=== PATIENT | female | born 2000 | race Caucasian/White ===

== ENCOUNTER 2023-04-15 09:06 | Outpatient (CLI) | payer OTHER, SELFPAY | END 2023-04-15 09:07 | disposition home or self-care (01) | PROVIDERS: Visit Provider Registered Nurse | DX: Z34.91 Encounter for supervision of normal pregnancy, unspecified, first trimester (principal); Z3A.01 Less than 8 weeks gestation of pregnancy | CPT/HCPCS: 76817; 82565; 82570; 84156; 84450; 84460; 84520; 84550; 86592; 86703; 86704; 86706; 86762; 86787; 86803; 86850; 86900; 86901; 87086; 87340; 87491; 87591 ==

== ENCOUNTER 2023-04-29 08:55 | Outpatient (CLI) | payer OTHER, SELFPAY | END 2023-04-29 08:56 | disposition home or self-care (01) | LOC: NFLDREF 05-03 11:37 | PROVIDERS: Visit Provider Obstetrics & Gynecology | DX: Z34.91 Encounter for supervision of normal pregnancy, unspecified, first trimester (principal); O34.00 Maternal care for unspecified congenital malformation of uterus, unspecified trimester; O10.911 Unspecified pre-existing hypertension complicating pregnancy, first trimester; Q51.28 Other and unspecified doubling of uterus; Z3A.08 8 weeks gestation of pregnancy | CPT/HCPCS: 76817; 87491; 87591 ==

== ENCOUNTER 2023-05-02 09:23 | Outpatient (CLI) | payer OTHER, SELFPAY | END 2023-05-02 09:24 | disposition home or self-care (01) | LOC: NFLDREF 15:36 | PROVIDERS: Visit Provider Physician Assistant Medical | DX: R30.0 Dysuria (principal); N39.0 Urinary tract infection, site not specified; O20.0 Threatened abortion | CPT/HCPCS: 87086; 87186; J2791 ==

== ENCOUNTER 2023-06-23 09:26 | Outpatient (CLI) | payer OTHER, SELFPAY | END 2023-06-23 09:27 | disposition home or self-care (01) | LOC: NFLDREF 09:27 | PROVIDERS: Visit Provider Obstetrics & Gynecology | DX: Z34.92 Encounter for supervision of normal pregnancy, unspecified, second trimester (principal); Z3A.16 16 weeks gestation of pregnancy | CPT/HCPCS: 81511 ==

== ENCOUNTER 2023-07-21 08:53 | Outpatient (CLI) | payer OTHER, SELFPAY | END 2023-07-21 08:54 | disposition home or self-care (01) | LOC: NFLDREF 08:58 | PROVIDERS: Visit Provider Obstetrics & Gynecology | DX: R30.0 Dysuria (principal) | CPT/HCPCS: 87086 ==

== ENCOUNTER 2023-09-14 08:42 | Outpatient (CLI) | payer OTHER, SELFPAY | END 2023-09-14 08:43 | disposition home or self-care (01) | LOC: NFLDREF 08:42 | PROVIDERS: Visit Provider Obstetrics & Gynecology | DX: Z34.93 Encounter for supervision of normal pregnancy, unspecified, third trimester (principal); Z3A.28 28 weeks gestation of pregnancy | CPT/HCPCS: 86592; 86850; J2791 ==

== ENCOUNTER 2023-09-14 13:45 | Outpatient (CLI) | payer OTHER, SELFPAY ==
--- NOTE | 2023-09-14 14:00 | US_ITS ---
Patient: DAYTON COWART Facility:?[facility] Patient ID:?[id number] Site Patient ID:?[id number] Site :?[id number] Study:?US-OB Pelvis growth-09/14/2023 3:01:22 PM Ordering Physician:Mayra Lopez Final Report: INDICATION: Chronic hypertension. Check growth. TECHNIQUE: Limited transabdominal two-dimensional wynn-scale ultrasound examination. COMPARISON: None FINDINGS: There is a living fetus in cephalic lie with gestational age of 28 weeks 1 day by LMP and 30 weeks 1 day by today`s measurements. EDC based on LMP is 12/06/2023. BPD: 7.7 cm, 31 weeks Head circumference: 28.3 cm, 31 weeks Abdominal circumference: 25.8 cm, 30 weeks Femur length: 5.4 cm, 28 weeks 5 days HC/AC ratio = 1.1 The weight is estimated at 1449 grams, greater than the 97th percentile. The heart rate is measured at 154 beats per minute and the rhythm appears regular. The amniotic fluid volume is within normal limits with single deepest pocket of 5.6 cm. The placenta is fundal and superior to the cervical os. There is no evidence of previa. IMPRESSION: 1. Living fetus in cephalic lie with gestational age of 28 weeks 1 day by LMP and 30 weeks 1 day by today`s measurements. EDC based on LMP is 12/06/2023. 2. weight estimated at 1449 grams, greater than the 97th percentile. Dictated by Forest Leroy MD @ 09/16/2023 8:05:36 AM Signed by:?Forest Leroy MD @09/16/2023 8:05:36 AM (Electronic Signature)
== END 2023-09-14 13:46 | disposition home or self-care (01) ==
LOC: US 13:46
PROVIDERS: Visit Provider Obstetrics & Gynecology
DX: O10.913 Unspecified pre-existing hypertension complicating pregnancy, third trimester (principal); Z3A.28 28 weeks gestation of pregnancy
CPT/HCPCS: 76816; 86850; J2791

== ENCOUNTER 2023-10-09 18:14 | Outpatient (CLI) | payer OTHER, SELFPAY ==
[2023-10-09] VITALS (42 sets, daily range): BP systolic 138–171; BP diastolic 76–95; PULSE 80–123; O2SAT 90–100
[2023-10-09 19:07] LABS: Hematocrit 37.1 % (33.0-51.0); Hemoglobin* 12.5 gm/dL (12.0-16.0); Mean Corpuscular HGB Conc 34 gm/dL (32-36); Mean Corpuscular Hemoglobin 29 pg (26-34); Mean Corpuscular Volume 86 fL (80-100); Platelet Count* 220 K/uL (140-440); Red Blood Count 4.31 m/uL (4.00-5.20); White Blood Count* 11.23 K/uL (4.50-11.00)
[2023-10-09 19:10] LABS: Slide Review Reflex No
[2023-10-09 19:16] LABS: Total Protein Urine 16 mg/dL
[2023-10-09 19:17] LABS: Creatinine Urine 20.1 mg/dL
[2023-10-09] MEDS: LABETALOL HCL 5 MG/ML inj 20 MG IVP (19:30)
[2023-10-09 19:33] LABS: Creatinine* 0.6 mg/dL (0.5-1.5); Estimated Glomerular Filt Rate 128 ml/min
[2023-10-09 19:34] LABS: Alanine Aminotransferase* 15 U/L (4-35); Aspartate Amino Transferase* 20 U/L (12-35); Blood Urea Nitrogen* 11 mg/dL (5-24)
[2023-10-09] MEDS: MAGNESIUM IV 4 GM/100 ML PIGGYBACK IVPB (19:37)
--- NOTE | 2023-10-09 19:45 | P.OBHP_ITS ---
OB - H&P; HPI Antepartum History of Present Illness Date Seen: 10/09/23 Chief complaint: maturnity Narrative: Mary Roche is a 23 year old female at 31 5/7 weeks' gestation by first trimester US not consistent with LMP, KIET 12/06/23, presents with report of new, severe elevations of BP noted at home. She reports a systolic BP this evening in 180s. At time of presentation, at 18:32, her BP was 174/94. She then had a BP of 166/95 at 19:18. She does have the diagnosis of chronic HTN, based on BP elevations of 140s / 90s-100 at time of her first visit at 6 weeks' gestation. Otherwise, her BP has been 130s / 70s since late April, and she is not treated with any antihypertensive medication. She denies any headache, visual changes, or right upper quadrant pain. Specific Issues/Plans G 1 P 0 Life Partner: Pablo Soria. Baby: Boy! 1. Chronic hypertension. Baseline preeclampsia labs ordered today. AST 20, ALT 16, PC ratio 0.00. 24 hour urine: protein 6 mg Recommend starting daily baby aspirin at 12 weeks. If blood pressures are well controlled without medication: Growth ultrasound every 4 weeks starting at 28 weeks Weekly BPP or NST starting at 32 weeks; delivery between 38 and 39 weeks per M 2. BMI 35.2 Hemoglobin A1c: 5.0 1hr GTT: 136 3. Dating by 1st trimester US. 4. Rh NEGATIVE Rhogam: 09/14/23 5. 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 s/p genetic counseling Status post MFM consultation: MFM ultrasound suggestive of bicornuate uterus. Comprehensive ultrasound with transvaginal cervical assessment will be done with MFM at 18 at 20 weeks. Q.4 weeks growth scan starting at 28 weeks. Q weekly surveillance starting at 32 (per MFM due to chronic HTN) Declined all screening Maternal serum AFP at 16-18 weeks possibly: 06/23/23 Level II ultrasound on 07/12: Bicornuate uterus. EFW 98%. AC at the 80%. Normal anatomy scan. MVP 5.4 cm. Posterior placenta, no previa. Three-vessel cord. Breech. Cervix 4.29 cm 6. Pap smear at her 6 wk pp visit. Covid: Completed, not boosted. Declined booster. Tdap: [at 32 week visit] Ultrasounds: 09/14/2023: Cephalic, EFW >97% at 1449 g. Normal fluid. 07/12/2023: Level 2 ultrasound. Posterior placenta without previa, three-vessel cord, normal fluid, AC 88%, EFW 98%, normal visualized anatomy 04/29/2023: Small inferior perigestational hemorrhage measuring 6 mm in greatest dimension. Uterine septum versus didelphys. April 15 24: 6 weeks, 3 days gestation by CRL, with sonographic KIET 12/06/2023 Review of Systems Narrative: no SOB no swelling of legs Otherwise as above Meds Home Medications and Allergies Home Medications ?Medication ?Instructions ?Recorded ?Confirmed ?Type vits no.126-ferrous fum tab PO QDAY 04/29/23 09/30/23 History 28 mg iron-folic acid 800 mcg tablet (Classic ) aspirin 81 mg tablet,delayed 81 mg PO QDAY 06/03/23 10/09/23 History release Allergies Allergy/AdvReac Type Severity Reaction Status Date / Time No Known Drug Allergies Allergy Verified 09/30/23 14:40 OB - H&P: Exam Physical Exam: Vital signs: Pulse BP Pulse Ox 93 142/88 H 100 10/09/23 19:33 10/09/23 19:44 10/09/23 19:43 Narrative: Physical exam: General: No acute distress Psych: Alert and oriented x3, full affect HEENT: Normocephalic, atraumatic, oropharynx benign Neck: No cervical adenopathy, no thyromegaly Heart: Regular rate and rhythm, no murmur rub or gallop Lungs: Clear to auscultation bilaterally Abdomen: Normoactive bowel sounds, soft, no tenderness, rebound, or guarding, no masses, no hepatosplenomegaly, no hernias Skin: No lesions or rashes Breasts: no nodules or masses, no nipple discharge, no axillary adenopathy Lower extremities: No edema or erythema Pelvic exam: Mons normal, clitoris normal, urethral meatus normal. Labia minora and majora normal in appearance bilaterally. Perineum and anus normal appearance. Vaginal introitus normal appearance. Vagina pink and well rugated with scant white discharge. Cervix pink and without lesion. Bimanual exam reveals uterus to be soft, nontender, mobile, anteverted, of normal size and texture. No palpable adnexal masses or tenderness. tracing: Baseline 140, accelerations to 170, no decelerations, moderate variability. OB - Results Labs Labs: Short CBC 10/09/23 Range/Units 18:56 WBC 11.23 H (4.50-11.00) K/uL Hgb 12.5 (12.0-16.0) gm/dL Hct 37.1 (33.0-51.0) % Plt Count 220 (140-440) K/uL BMP 10/09/23 18:56 BUN 11 Creatinine 0.6 Liver Function 10/09/23 Range/Units 18:56 AST 20 (12-35) U/L ALT 15 (4-35) U/L protein to creatinine ratio = 0.80 OB - A/P Antepartum Assessment and Plan (1) Severe preeclampsia: Problem details: superimposed on chronic HTN Status: Acute Assessment and Plan: at 31 5/7 weeks' gestation. She was treated with IV labetalol prior to the initiation of magnesium sulfate infusion. After that time, her BPs were persistently with systolics in the 150s. She was given an additional dose of labetalol 200 mg. She was given a dose of betamethasone at around 8:30 PM. She is to be transferred to [facility], with Dr. Faith Martinez accepting the transfer. Additional Plan Plan: other (Transfer)
[2023-10-09] MEDS: BETAMETHASONE SOD PHOS/ACETATE 6 MG/ML ML 12 MG IM (20:09)
[2023-10-09] MEDS: MAGNESIUM Infusion 40 GM/1,000 ML IV.SOLN IVPB (20:15)
[2023-10-09] MEDS: LABETALOL HCL 100 MG TABLET 200 MG PO (20:41)
--- NOTE | 2023-10-12 20:40 | PC.OBNST ---
NST Note NST Note Start: 10/09/23 18:19 Freq: ONCE Status: Discharge Protocol: Document 10/12/23 20:36 JUAN F (Rec: 10/12/23 20:40 JUAN F [id number]) NST Note 1 Para (# of births) 0 EDC 12/06/23 Gestational Age In Weeks & Days 32 Weeks & 1 Days High Risk Factors High Blood Pressure - Gestational Patient Presented with Complaint(s) of Other Other Complaints Preeclampsia, transferred to [facility] Reactive Yes RN Medardo Grier, RN Date 10/09/23 RN Patient transferred OB NST charge Yes Complete NST Note via Write Note Yes The provider's electronic signature indicates the NST is reactive/appropriate for gestational age. *Note to provider: If an addendum is required, open the patient's chart and click on the note under the Nurse/Allied Health tab.
== END 2023-10-09 20:54 | disposition short-term general hospital (02) ==
LOC: OB OUT 18:15 → OB 18:16
PROVIDERS: Visit Provider Obstetrics & Gynecology
DX: O14.13 Severe pre-eclampsia, third trimester (principal); Z3A.31 31 weeks gestation of pregnancy
CPT/HCPCS: 36415; 59025; 82565; 82570; 84156; 84450; 84460; 84520; 85027; 86850; 86870; 86880; 86900; 86901; G0463; A9270; J0702; J3475

== ENCOUNTER 2023-10-09 20:41 | Outpatient (CLI) | payer OTHER, SELFPAY | END 2023-10-09 20:42 | disposition home or self-care (01) | LOC: AMB 10-11 18:05 | PROVIDERS: Visit Provider Emergency Medicine | DX: O14.13 Severe pre-eclampsia, third trimester (principal); Z3A.31 31 weeks gestation of pregnancy | CPT/HCPCS: A0425; A0427 ==

== ENCOUNTER 2023-11-08 08:22 | Outpatient (CLI) | payer OTHER, SELFPAY | END 2023-11-08 08:23 | disposition home or self-care (01) | LOC: NFLDREF 11-09 10:50 | PROVIDERS: Visit Provider Physician Assistant Medical | DX: N39.0 Urinary tract infection, site not specified (principal); N30.01 Acute cystitis with hematuria | CPT/HCPCS: 87086 ==

== ENCOUNTER 2024-01-13 11:24 | Emergency (ER) | payer OTHER, SELFPAY ==
[2024-01-13 11:30] VITALS: BP 150/93; PULSE 71; RESP 18; TEMP 35.9; O2SAT 98; BMI 39.2
--- NOTE | 2024-01-13 11:55 | ED_ITS ---
HPI - General Adult General Chief complaint: Hypertension Stated complaint: High bp 140/98 hx of preeclampsia Time Seen by Provider: 01/13/24 11:41 Source: patient Mode of arrival: ambulatory Limitations: no limitations History of Present Illness HPI narrative: 23-year-old female coming in today concerned about elevated blood pressures. Patient is 11 weeks status post normal spontaneous vaginal delivery of a lambert at 34 weeks gestation. Patient did have preeclampsia during her that developed at 32 weeks gestation. She was started on nifedipine and has been taking nifedipine 90 mg p.o. daily since her delivery. Blood pressures were generally in the 120s to 140s however recently in the last several days they been consistently elevated in the 140s to 150 systolic over 90 or above diastolic. Patient states that she cannot get her bottom number to go below 90. She also states that she feels a mild throbbing headache. No nausea or vomiting. She denies any changes in her vision. She denies any abdominal pain. She has stopped bleeding. She denies any difficulty with urination, diarrhea or constipation. No neurologic deficits. No confusion or fogginess. No changes in speech. Related Data Home Medications ?Medication ?Instructions ?Recorded ?Confirmed nifedipine 90 mg tablet,extended 90 mg PO DAILY 11/08/23 01/13/24 release Allergies Allergy/AdvReac Type Severity Reaction Status Date / Time No Known Drug Allergies Allergy Verified 01/13/24 11:39 Review of Systems Status of ROS: Reports: 10 or more systems reviewed and unremarkable except as noted in History and below [facility] Medical History Acute UTI ?N39.0 - Urinary tract infection, site not specified (ICD-10) Urinary tract infection ?N39.0 - Urinary tract infection, site not specified (ICD-10) Cellulitis ?L03.90 - Cellulitis, unspecified (ICD-10) Cutaneous candidiasis ?B37.2 - Candidiasis of skin and nail (ICD-10) Family History Mother High blood pressure Social History Narrative: Lives in [place] with her partner and dogs. She works at an insurance agency. She doesn't smoke or use recreational drugs. What is your current living situation?: I presently have a place to live Problems where you live: no known problems In the past 12 months, utilities in danger of being shut off: no In past 12 months, lack of transportation kept you from medical appts, meetings, work, or getting things needed for daily living: no How hard is it for you to pay for the very basics like food, housing, medical care, and heating: not very hard In the past 12 mos, have been you worried that your food would run out before you had money to buy more?: never true In the past 12 mos, the food you bought just didn't last and you didn't have money to buy more?: never true Smoking Status: Former smoker How often does anyone, including family, friends and others, physically hurt you : never How often does anyone, including family, friends and others, insult or talk down to you: never How often does anyone, including family, friends and others, threaten you with harm: never How often does anyone, including family, friends and others, scream or curse at you: never Little interest or pleasure in doing things: not at all Feeling down, depressed, or hopeless: not at all Exam Narrative: Exam Narrative: Overweight, well-developed patient in no acute distress. Alert and oriented. Answers questions appropriately. Mood and affect are appropriate. Thoughts are goal oriented and rational. No tangential or magical thinking noted. Patient speaks in full sentences without needing to catch her breath. HEENT: Normocephalic atraumatic. Pupils are equally round reactive to light. Extraocular muscles are intact. Conjunctivae are moist without any icterus noted. Moist mucous membranes. Cardiovascular: Heart is regular rate and rhythm S1 and S2 are present without any murmurs. Lungs: Clear to auscultation bilaterally no wheezes rhonchi or rales are appreciated. Patient takes deep breaths without any discomfort. Abdomen: Soft and nontender nondistended with normal bowel sounds. Extremities: Bilateral lower extremities are without edema. Skin: Well perfused. Acne. Const: Vital Signs, click to edit/add: Vital Signs - 24 hr 01/13/24 11:30 01/13/24 12:45 Temperature 96.7 F L Pulse Rate [Pulse Oximeter] 71 64 Respiratory Rate 18 16 Blood Pressure [Ri ght Upper Arm] 150/93 H 133/89 Pulse Oximetry 98 98 Oxygen Delivery Me thod Room Air Room Air Course Course ED Course: normal CBC. Chemistries are normal. Normal LFTs. EKG, read by me, shows normal sinus rhythm with a pulse of 64. UA unremarkable. TSH pending at time of dictation. I did consult with who recommends the patient be sent to primary care for management of chronic hypertension as she appears to be suboptimally treated at this time. Of note, repeat blood pressure did come back at 133/89. Vital Signs Vital signs: Initial Vital Signs Temperature 96.7 F L 01/13/24 11:30 Temperature Source Temporal Artery Scan 01/13/24 11:30 Pulse Rate 71 01/13/24 11:30 Respiratory Rate 18 01/13/24 11:30 Blood Pressure 150/93 H 01/13/24 11:30 Blood Pressure Mean 112 H 01/13/24 11:30 Blood Pressure Position Sitting 01/13/24 11:30 Pulse Oximetry 98 01/13/24 11:30 Oxygen Delivery Method Room Air 01/13/24 11:30 Vital Signs Temperature 96.7 F L 01/13/24 11:30 Pulse Rate 71 01/13/24 11:30 Respiratory Rate 18 01/13/24 11:30 Blood Pressure 150/93 H 01/13/24 11:30 Pulse Oximetry 98 01/13/24 11:30 Oxygen Delivery Method Room Air 01/13/24 11:30 Temperature 96.7 F L 01/13/24 11:30 Pulse Rate 64 01/13/24 12:45 Respiratory Rate 16 01/13/24 12:45 Blood Pressure 133/89 01/13/24 12:45 Pulse Oximetry 98 01/13/24 12:45 Oxygen Delivery Method Room Air 01/13/24 12:45 Medical Decision Making MDM Narrative Medical decision making narrative: 23-year-old female 11 weeks , history of preeclampsia and elevated blood pressures presenting with a blood pressure 150/93. Workup was unremarkable. Patient is hemodynamically stable otherwise. Does not appear ill or toxic. Patient will be sent to primary care for management of chronic hypertension. Lab Data Lab results reviewed: Yes I reviewed the patient's lab results Labs: Lab Results 01/13/24 01/13/24 Range/Units 12:05 13:18 WBC 6.40 (4.50-11.00) K/uL RBC 4.75 (4.00-5.20) m/uL Hgb 13.2 (12.0-16.0) gm/dL Hct 40.5 (33.0-51.0) % MCV 85 (80-100) fL MCH 28 (26-34) pg MCHC 33 (32-36) gm/dL RDW Coeff of Jessica 12.0 (11.5-15.5) % Plt Count 239 (140-440) K/uL Neut % (Auto) 52.5 (42.0-72.0) % Lymph % (Auto) 40.3 (20-44) % [place] % (Auto) 5.6 (0.0-11.0) % Eos % (Auto) 1.3 (0.0-7.0) % Baso % (Auto) 0.3 (0.0-3.0) % Neut # (Auto) 3.36 (1.7-7.0) K/uL Lymph # (Auto) 2.58 (0.90-2.90) K/uL [place] # (Auto) 0.40 (0.00-0.90) K/UL Eos # (Auto) 0.08 (0.00-0.50) K/uL Baso # (Auto) 0.02 (0.00-0.30) K/uL Abs Immat Gran (auto) 0.00 (0.00-0.30) K/uL Imm/Tot Granulo (auto) 0.0 % Sodium 138 (135-149) mmol/L Potassium 4.7 (3.6-5.1) mmol/L Chloride 104 (96-114) mmol/L Carbon Dioxide 25 (20-32) mmol/L Anion Gap 9 (7-15) mEq/L BUN 14 (5-24) mg/dL Creatinine 0.9 (0.5-1.5) mg/dL Estimated Creat Clear 92.92 Estimated GFR 91 ml/min Glucose 77 (60-115) mg/dL Calcium 9.9 (8.4-10.6) mg/dL Total Bilirubin 0.3 (0.1-1.5) mg/dL Direct Bilirubin 0.0 (0.0-0.5) mg/dL AST 17 (12-35) U/L ALT 13 (4-35) U/L Alkaline Phosphatase 76 (40-150) U/L Troponin I < 0.01 L (0.01-0.04) ng/mL Total Protein 7.0 (6.0-8.3) g/dL Albumin 4.6 (3.3-5.0) g/dL Urine Color Yellow (Yellow) Urine Appearance Clear (Clear) Urine pH 6.0 (5.0-8.5) Ur Specific [place] 1.010 (1.000-1.030) Urine Protein Negative (Negative) Urine Glucose (UA) Negative (Negative) Urine Ketones Negative (Negative) Urine Blood Negative (Negative) Urine Nitrite Negative (Negative) Urine Bilirubin Negative (Negative) Urine Urobilinogen 0.2 (0.2-1.0) Ur Leukocyte Esterase Negative (Negative) Urine RBC 0-2 (0-2) Urine WBC 0-2 (0-5) Ur Squamous Epith Cells Moderate A (None-Few) Urine Bacteria Moderate A (None) ECG Data Attestation: I personally reviewed and interpreted this ECG as follows: Discharge Plan Discharge Clinical Impression: Chronic hypertension Patient Disposition: Home, Self-Care Condition: Stable Additional Instructions: Blood work was normal today. It is recommended that you follow-up with your primary care provider to change treatment for elevated blood pressure. Return to the emergency room if you develop chest or abdominal pain. Prescriptions: No Action nifedipine 90 mg tablet extended release 90 mg PO DAILY Patient Comments: [NO ORIGINAL SIG] Follow Up/Referrals: Provider,Not a Local [Primary Care Provider] - Stand Alone Forms: instruMagic Info Instructions
[2024-01-13 12:19] LABS: Basophils Absolute Auto 0.02 K/uL (0.00-0.30); Basophils Percent Auto 0.3 % (0.0-3.0); Eosinophils Absolute Auto 0.08 K/uL (0.00-0.50); Eosinophils Percent Auto 1.3 % (0.0-7.0); Hematocrit 40.5 % (33.0-51.0); Hemoglobin* 13.2 gm/dL (12.0-16.0); Lymphocytes Absolute Auto 2.58 K/uL (0.90-2.90); Lymphocytes Percent Auto 40.3 % (20-44); Mean Corpuscular HGB Conc 33 gm/dL (32-36); Mean Corpuscular Hemoglobin 28 pg (26-34); Mean Corpuscular Volume 85 fL (80-100); Monocytes Percent Auto 5.6 % (0.0-11.0); Neutrophils Absolute Auto 3.36 K/uL (1.7-7.0); Neutrophils Percent Auto 52.5 % (42.0-72.0); Platelet Count* 239 K/uL (140-440); Red Blood Count 4.75 m/uL (4.00-5.20)
[2024-01-13 12:22] LABS: Slide Review Reflex No
[2024-01-13 12:25] LABS: Albumin* 4.6 g/dL (3.3-5.0)
[2024-01-13 12:26] LABS: Chloride* 104 mmol/L (96-114); Potassium* 4.7 mmol/L (3.6-5.1); Sodium* 138 mmol/L (135-149)
[2024-01-13 12:28] LABS: Anion Gap 9 mEq/L (7-15); Bilirubin Total* 0.3 mg/dL (0.1-1.5); Carbon Dioxide* 25 mmol/L (20-32); Creatinine* 0.9 mg/dL (0.5-1.5); Est. Creatinine Clearance* 92.92; Estimated Glomerular Filt Rate 91 ml/min
[2024-01-13 12:29] LABS: Alanine Aminotransferase* 13 U/L (4-35); Alkaline Phosphatase* 76 U/L (40-150); Aspartate Amino Transferase* 17 U/L (12-35); Blood Urea Nitrogen* 14 mg/dL (5-24); Calcium* 9.9 mg/dL (8.4-10.6); Glucose* 77 mg/dL (60-115)
[2024-01-13 12:42] LABS: Troponin I* < 0.01 ng/mL (0.01-0.04)
[2024-01-13 12:45] VITALS: BP 133/89; PULSE 64; RESP 16; O2SAT 98
[2024-01-13 13:38] LABS: Appearance Urine Clear (Clear); Bilirubin Urine Negative (Negative); Blood Urine Negative (Negative); Color Urine Yellow (Yellow); Glucose Urine Negative (Negative); Ketones Urine Negative (Negative); Leukocyte Esterase Urine Negative (Negative); Nitrite Urine Negative (Negative); Protein Urine Negative (Negative); Urobilinogen Urine 0.2 (0.2-1.0)
[2024-01-13 13:59] LABS: Bacteria Urine Moderate; RBC Urine 0-2 (0-2); Squamous Epithelial Cell Urine Moderate (None-Few); WBC Urine 0-2 (0-5)
== END 2024-01-13 14:23 | disposition home or self-care (01) ==
PROVIDERS: Emergency Provider Family Medicine
DX: I10 Essential (primary) hypertension (principal)
CPT/HCPCS: 36415; 80048; 80076; 81001; 84443; 84484; 85025; 87086; 93005; 99284